=== PATIENT | female | born 2000 | race Caucasian/White ===

== ENCOUNTER 2020-05-04 20:08 | Emergency (ER) | payer OTHER ==
[~2020-05-04 20:08] MED LIST: Iopamidol 370 76% 100 ML VIAL ONE
[2020-05-04] MEDS ORDERED: Ibuprofen 200 MG TAB ONE (21:49)
== END 2020-05-04 23:00 | disposition home or self-care (01) ==
LOC: ERS 20:08
DX: S09.90XA Unspecified injury of head, initial encounter (principal); S80.12XA Contusion of left lower leg, initial encounter; S80.11XA Contusion of right lower leg, initial encounter; V89.2XXA Person injured in unspecified motor-vehicle accident, traffic, initial encounter
CPT/HCPCS: 70450; 70498; 71045; G0390; Q9967